=== PATIENT | female | born 1970 | race Asian ===

== ENCOUNTER 2024-01-23 09:00 | Outpatient (OUT) | payer MEDICARE, MEDICAID, SELFPAY ==
--- NOTE | 2024-01-23 09:14 | XR_ITS ---
[address] [address] Patient Name: LYRIC BOWLES MRN: [id number] date: 1970 Sex: F Assigned Patient Location: [facility] Current Patient Location: [facility] Accession/Order Number: [id number] Exam Date: 01/23/2024 09:28 Report Date: 01/23/2024 10:09 At the request of: NON-STAFF PHYSICIAN Procedure: XR DEXA axial skeleton EXAMINATION: XR DEXA axial skeleton, 01/23/2024 9:28 AM EDT HISTORY: Osteoporosis COMPARISON: None. TECHNIQUE: Dual-energy X-ray absorptiometry (DEXA) bone density study performed for the axial skeleton. HISTORY: Osteoporosis FINDINGS: Bone mineral density AP spine L2-L4 measures 0.934 g/sq cm. T score -2.2. WHO classification: Osteopenia. Lowest bone mineral density is in the femoral trochanters measuring 0.53 g/sq cm. T score -2.7. WHO classification: Osteoporosis XR/XR DEXA axial skeleton IMPRESSION: Osteoporosis. High fracture risk Electronically authenticated by: RACHELE CLEARY Date: 01/23/2024 10:09
== END 2024-01-23 09:01 | disposition home or self-care (01) ==
LOC: RAD 09:04
DX: M81.0 Age-related osteoporosis without current pathological fracture (principal)
CPT/HCPCS: 77080

== ENCOUNTER 2024-02-21 12:42 | Outpatient (OUT) | payer MEDICARE, MEDICAID, SELFPAY ==
--- NOTE | 2024-02-21 12:44 | MM_ITS ---
Patient Name: LYRIC BOWLES MR#: [id number] : 1970 Exam Date: 02/21/2024 Ordering Doctor: Non-Staff Physician RADIOLOGY REPORT PROCEDURE: MM TOMOSYNTHESIS SCREENING BI COMPARISON: MG MAMM TOMAS SCRN W CAD DIG, 06/23/2016. INDICATIONS: Screening Calculator Name NCI Breast Cancer Risk Assessment Tool 5 Year Breast Cancer Risk 2.50% Lifetime Breast Cancer Risk 16.50% Personal Breast Cancer No Personal Ovarian Cancer No Treatments None Family Cancers Mother with breast cancer at age 45. LOCATION: [facility] BREAST COMPOSITION: Scattered areas fibroglandular density. FINDINGS: DIAGNOSTIC CATEGORY 1--NEGATIVE. NO CHANGE FROM COMPARISON ASSESSMENT. Scattered benign-appearing calcifications are present. RIGHT BREAST: No significant suspicious finding. LEFT BREAST: No significant suspicious finding. RECOMMENDATIONS: ROUTINE MAMMOGRAM AND CLINICAL EVALUATION IN 12 MONTHS. PLEASE NOTE: A NORMAL MAMMOGRAM DOES NOT EXCLUDE THE POSSIBILITY OF BREAST CANCER. A CLINICALLY SUSPICIOUS PALPABLE LUMP SHOULD BE BIOPSIED. Dictated by: Nino Muse MD on 02/21/2024 at 14:30 Approved by: Nino Muse MD on 02/21/2024 at 14:32
--- OUTSIDE RECORDS SUMMARY | 2024-02-21 12:45 | XMS_ITS | CCD ---
Author Organization [facility] Care Team Providers Care Videogame Designer Name Role Phone MISC, DOCTOR Primary Care Rena QUIÑONES, CARMEN Admitting Unavailable HAY, CARMEN Attending Unavailable HAY, CARMEN Consulting Unavailable Allergies Allergy Classification Reported Allergen(s) Allergy Type Date of Onset Reaction(s) Facility (1 source) Tetracycline Drug Allergy 08-25-2013 [facility] Repository Problems Problem Classification Problem Date Documented Da te Episodic/Chronic Other non-traumatic joint disorders (4 sources) Pain in left shoulder; Translations: [PAIN IN LEFT SHOULDER] Onset: 03-26-2020 Episodic Encounters Encounter Date Encounter Type Care Provider Facility Start: 03-26-2020 End: 03-26-2020 Patient encounter procedure DOCTOR MISC Facility: Payers Date Payer Category Payer Unknown [id number] 1961 Medicaid [id number] 1961 Medicare [id number] Summary Purpose Family History No Family History Records Found Advance Directives No Advanced Directives Records Found Additional Source Comments INFORMATION SOURCE (unrecogn ized section and content) DATE CREATED AUTHOR 09/05/2020 [facility] FOR RECORDS PERTAINING TO PATIENTS WHO ARE OR HAVE BEEN ENROLLED IN A CHEMICAL DEPENDENCY/SUBSTANCEABUSE PROGRAM, SOME INFORMATION MAY BE OMITTED. This clinical summary was aggregated from multiple sources. Caution should be exercised in using it in the provision of clinical care. This summary normalizes information from multiple sources, and as a consequence, information in this document may materially change the coding, format and clinical context of patient data. In addition, data may be omitted in some cases. CLINICAL DECISIONS SHOULD BE BASED ON THE PRIMARY CLINICAL RECORDS. [facility]. provides no warranty or guarantee of the accuracy or completeness of information in this document.
== END 2024-02-21 12:43 | disposition home or self-care (01) ==
LOC: MAMMO 12:42
DX: Z12.31 Encounter for screening mammogram for malignant neoplasm of breast (principal); Z80.3 Family history of malignant neoplasm of breast
CPT/HCPCS: 77063; 77067

== ENCOUNTER 2025-05-21 10:32 | Outpatient (OUT) | payer MEDICARE, MEDICAID, SELFPAY ==
--- OUTSIDE RECORDS SUMMARY | 2011-11-18 08:30 | XMS_ITS | Encounter Summary ---
Author Organization [facility] Address [address] [place] [address] Care Team Providers Care Offal Icer Poultry Name Role Phone Robert Ortiz MD Primary Care Provider [phone] Encounter Details Date Type Department Care Team (Late st Contact Info) Description 11/18/2011 7:30 AM EST Hospital Encounter [facility] [address] [place] [id number] Rustam Elliott, [address] [place] [phone] Social History Tobacco Use Types Packs/Day Years Used Date Smoking Tobacco: Never Alcohol Use Standard Drinks/Week Comments No 0 (1 standard drink = 0.6 oz pur e alcohol) Comments Unknown Sex and Gender Information Value Date Recorded Sex Assigned at Not on file Legal Sex Female 2:07 PM EST Gender Identity Not on file Sexual Orientation Not on file documented as of this encounter Plan of Treatment Not on file documented as of this encounter Visit Diagnoses Not on filedocumented in this encounter Care Teams Offal Icer Poultry Relationship Specialty Start Date End Date Robert Ortiz MD PCP - General 09/22/11 documented as of this encounter
--- OUTSIDE RECORDS SUMMARY | 2012-04-18 08:30 | XMS_ITS | Encounter Summary ---
Author Organization [facility] Address [address] [place] [address] Care Team Providers Care Physician Relations Manager Name Role Phone Robert Ortiz MD Primary Care Provider [phone] Encounter Details Date Type Department Care Team (Late st Contact Info) Description 04/18/2012 8:30 AM EDT Hospital Encounter [facility] [address] [place] [id number] Bandar Chavis MD [address] [address] Social History Tobacco Use Types Packs/Day Years [...] on filedocumented in this encounter Care Teams Physician Relations Manager Relationship Specialty Start Date End Date Robert Ortiz MD PCP - General 09/22/11 documented as of this encounter
--- OUTSIDE RECORDS SUMMARY | 2025-05-21 10:34 | XMS_ITS | Clinical Summary ---
Author Organization [facility] Address [address] [place] [address] Care Team Providers Care Loop Tender Name Role Phone Robert Ortiz MD Primary Care Provider [phone] Allergies Active Allergy Reactions Criticality Noted Date Comments Penicillins 09/22/2011 Medications divalproex (DEPAKOTE) 250 MG ER tablet Take 250 mg by mouth daily. Active citalopram (CELEXA) 20 MG tablet Take 20 mg by mouth daily. Active aripiprazole (ABILIFY) 15 MG tablet Take 15 mg by mouth daily. Active quetiapine (SEROQUEL) 100 MG tablet Take 200 mg by mouth 2 times daily. Active Active Problems Problem Noted Date Diagnosed Date Dysphagia 09/22/2011 Family History Medical History Relation Name Comments Esophageal Cancer Father Stomach Cancer Father Stomach Cancer Mother Relation Name Status Comments Father Mother Social History Tobacco Use Types Packs/Day Years Used Date Smoking Tobacco: Never Alcohol Use Standard Drinks/Week Comments No 0 (1 standard drink = 0.6 oz pur e alcohol) Comments Unknown Sex and Gender Information Value Date Recorded Sex Assigned at Not on file Legal Sex Female 2:07 PM EST Gender Identity Not on file Sexual Orientation Not on file Last Filed Vital Signs Vital Sign Reading Time Taken Comments Blood Pressure 98/66 09/22/2011 9:59 AM EST Pulse 67 09/22/2011 9:59 AM EST Temperature 36.3 C (97.3 F) 09/22/2011 9:59 AM EST Respiratory Rate 20 09/22/2011 9:59 AM EST Oxygen Saturation - - Inhaled Oxygen Concentration - - Weight 54.4 kg (120 lb) 09/22/2011 9:59 AM EST Height 160 cm (5' 3 ) 09/22/2011 9:59 AM EST Body Mass Index 21.26 09/22/2011 9:59 AM EST Plan of Treatment Not on file Care Teams Loop Tender Relationship Specialty Start Date End Date Imm, Robert Spears MD PCP - General 09/22/11
--- OUTSIDE RECORDS SUMMARY | 2025-05-21 10:34 | XMS_ITS | Clinical Summary ---
Demographics Address [address] [place] [address] Mobile Phone Home Phone Email Address Preferred Language [place] Marital Status Mormonism Affiliation Unknown Race Ethnic Group Not or Lati no Author Organization [employer] Address [id number] [address] [place] [address] Care Team Providers Care Ordnance Truck Installation Supervisor Name Role Phone Robert Ortiz MD Primary Care Provider [phone] Allergies Active Allergy Reactions Criticality Noted Date Comments Tetracycline 03/19/2020 Medications lidocaine (LIDODERM) 5 % Place 1 patch on the skin daily. Remove & Discard patch within 12 hours or as directed by 5 patch 03/19/2020 Active naproxen (NAPROSYN) 500 mg tablet Take 1 tablet (500 mg total) by mouth 2 (two) times a day with meals. 30 tablet 03/19/2020 Active Social History Tobacco Use Types Packs/Day Years Used Date Smoking Tobacco: Never Smokeless Tobacco: Never Alcohol Use Standard Drinks/Week Comments Never 0 (1 standard drink = 0.6 oz pur e alcohol) AUDIT-C Answer Date Recorded Q1: How often do you have a drink containing alc ohol? Never 03/19/2020 Average Number of Drinks Not on file 020 Frequency of Binge Drinking Not on file 04/2020 Childcare Answer Date Recorded Childcare Unknown 04/23/2019 Employment Answer Date Recorded Employment Unknown 04/23/2019 Purpose - Life Answer Date Recorded Purpose and direction in life Unknown Comments No Sex and Gender Information Value Date Recorded Sex Assigned at Not on file Legal Sex Female 1:48 PM EDT Gender Identity Not on file Sexual Orientation Not on file Last Filed Vital Signs Vital Sign Reading Time Taken Comments Blood Pressure 106/64 03/19/2020 10:07 AM EDT Pulse 83 03/19/2020 10:07 AM EDT Temperature 36.4 C (97.5 F) 03/19/2020 10:07 AM EDT Respiratory Rate 18 03/19/2020 10:07 AM EDT Oxygen Saturation - - Inhaled Oxygen Concentration - - Weight 55.8 kg (123 lb) 03/19/2020 10:07 AM EDT Height 167.6 cm (5' 6 ) 03/19/2020 10:07 AM EDT Body Mass Index 19.85 03/19/2020 10:07 AM EDT Plan of Treatment Not on file Medical Devices Not on file Insurance * Guarantor: Becky Root Account Type Relation to Patient Date of Phone Billing Address Personal/Family Self 1970 [address] [place] [address] MEDICARE Care Teams Ordnance Truck Installation Supervisor Relationship Specialty Start Date End Date Robert Ortiz MD PCP - General 01/28/14
--- NOTE | 2025-05-21 10:36 | MM_ITS ---
Patient Name: LYRIC BOWLES MR#: [id number] : 1970 Exam Date: 05/21/2025 Ordering Doctor: NON-STAFF PHYSICIAN RADIOLOGY REPORT PROCEDURE: MM TOMOSYNTHESIS SCREENING BI COMPARISON: MM TOMOSYNTHESIS SCREENING BI, 02/21/2024. MG MAMM TOMAS SCRN W CAD DIG, 06/23/2016. MG MAMM TOMAS SCRN W CAD DIG, 10/29/2014. MAMMO TOMAS SCREEN, 04/10/2009. INDICATIONS: Screening Calculator Name NCI Breast Cancer Risk Assessment Tool 5 Year Breast Cancer Risk 2.60% Lifetime Breast Cancer Risk 16.10% Personal Breast Cancer No Personal Ovarian Cancer No Treatments None Family Cancers Mother with breast cancer at age 45. LOCATION: [facility] BREAST COMPOSITION: There are scattered areas of fibroglandular density. FINDINGS: RIGHT BREAST: No significant suspicious finding. LEFT BREAST: No significant suspicious finding. DIAGNOSTIC CATEGORY 1--NEGATIVE. RECOMMENDATIONS: ROUTINE MAMMOGRAM AND CLINICAL EVALUATION IN 12 MONTHS. PLEASE NOTE: A NORMAL MAMMOGRAM DOES NOT EXCLUDE THE POSSIBILITY OF BREAST CANCER. A CLINICALLY SUSPICIOUS PALPABLE LUMP SHOULD BE BIOPSIED. Dictated by: Jewel Miller DO on 05/21/2025 at 11:52 Approved by: Jewel Miller DO on 05/21/2025 at 11:53
== END 2025-05-21 10:33 | disposition home or self-care (01) ==
LOC: MAMMO 10:32
DX: Z12.31 Encounter for screening mammogram for malignant neoplasm of breast (principal); Z80.3 Family history of malignant neoplasm of breast
CPT/HCPCS: 77063; 77067